=== PATIENT | female | born 1965 | race Native Hawaiian/Other Pacific Islander ===

== ENCOUNTER 2018-12-10 08:45 | Emergency (ER) | payer OTHER ==
[~2018-12-10] VITALS: Ht 170.2 cm; Wt 49.9 kg
[2018-12-10 09:24] LABS: PLATELET COUNT 266 K/uL (152-353)
[2018-12-10 11:30] VITALS: BP 125/82; TEMP 98.7
== END 2018-12-10 11:34 | disposition home or self-care (01) ==
LOC: ED 08:45
PROVIDERS: Emergency Medicine
DX: N39.0 Urinary tract infection, site not specified (principal); E86.0 Dehydration
CPT/HCPCS: 36415; 80053; 80307; 81000; 81025; 85027; 87077; 87086; 87088; 87186; 96360; 96361; 96374; 96375; 99284; J1885

== ENCOUNTER 2022-12-24 11:21 | Emergency (ER) | payer OTHER ==
[~2022-12-24] VITALS: Ht 170.2 cm; Wt 58.5 kg
[2022-12-24 11:35] VITALS: TEMP 98.1
[2022-12-24 12:05] LABS: PLATELET COUNT 293 K/uL (152-353)
[2022-12-24 12:17] LABS: POTASSIUM 3.8 mmol/L (3.6-5.2)
[2022-12-24 12:37] VITALS: BP 147/92
== END 2022-12-24 12:37 | disposition home or self-care (01) ==
LOC: ED 11:21
PROVIDERS: Family Medicine
DX: L03.311 Cellulitis of abdominal wall (principal); S30.861A Insect bite (nonvenomous) of abdominal wall, initial encounter; W57.XXXA Bitten or stung by nonvenomous insect and other nonvenomous arthropods, initial encounter
CPT/HCPCS: 80053; 83605; 85027; 99283